=== PATIENT | female | born 1960 | race Caucasian/White ===

== ENCOUNTER → 2017-12-20 | Day surgery (SDC) | payer OTHER ==
[~2017-12-20] VITALS: Ht 157.5 cm; Wt 77.1 kg
[~2017-12-20] MED LIST: FLOMAX0.4 M1 PO; PERCOCET 5-3251 EACH PO; TRIAMTERENE-HC1 EAC1 PO; ZOFRAN4 M2 PO
--- NOTE | 2017-12-20 14:06 | ED GI/GU/ABDOMINAL COMPLAINT ---
History of Present Illness General Chief Complaint: Female Urogenital Problems Stated Complaint: KIDNEY STONE PAIN, SEEN HERE 12/19/17 Source: patient, family, old records Exam Limitations: no limitations Vital Signs & Intake/Output Vital Signs & Intake/Output Vital Signs Date Time Temp Pulse Resp B/P B/P Pulse O2 O2 Flow FiO2 Mean Ox Delivery Rate 12/20 1525 98.5 94 18 144/76 99 Room Air Room Air 12/20 1419 98.8 90 20 150/70 100 Room Air 12/20 1337 97.6 106 16 125/82 95 Room Air ED Intake and Output 12/21 0000 12/20 1200 Intake Total 0 Output Total Balance 0 Intake, Oral 0 Patient 170 lb Weight Weight Reported by Patient Measurement Method Allergies Coded Allergies: Penicillins (Mild, UNKNOWN 12/19/17) Sulfa (Sulfonamide Antibiotics) (Mild, HIVES 12/19/17) Uncoded Allergies: CODIENE (Mild, NAUSEA, VOMITING 12/19/17) Reconcile Medications Ondansetron HCl (Zofran) 4 MG TABLET 1 TAB PO Q6-8P PRN NAUSEA Oxycodone HCl/Acetaminophen (Percocet 5-325 MG Tablet) 5 MG-325 MG TABLET 1 TAB PO TID PRN PAIN Tamsulosin HCl (Flomax) 0.4 MG CAP.ER.24H 1 CAP PO DAILY KIDNEY STONE Triamterene/Hydrochlorothiazid (Triamterene-Hctz 37.5-25 MG Tb) 37.5 MG-25 MG TABLET 1 TAB PO DAILY HIGH BLOOD PRESSURE (Reported) Triage Note: 57 Y/O EVAL'D IN ED LAST EVENING AND DIAGNOSED WITH KIDNEY STONE. STATES SHE HAS NOT HAD PAIN SINCE ER VISIT LAST NIGHT HOWEVER PT C/O BEING UNABLE TO CONTROL NAUSEA. LAST ROUND PO MEDICATIONS 10AM. PT STATES THEY CALLED DR ARMAS AND WAS ADVISED TO COME TO ED FOR POSSIBLE STENT PLACEMENT AT 3PM. MIROSLAVA CHATA EVALUATING IN TRIAGE. Triage Nurses Notes Reviewed? yes LMP (ages 10-50): unknown ? N Is pt currently ? No Onset: Abrupt Duration: day(s): (2-3), constant, continues in ED Timing: single episode today Quality/Severity: vomiting Location: left flank, left lower quadrant, left upper quadrant Radiation: back Activities at Onset: none Prior Abdominal Problems: none Past Sexual History: Unobtainable at this time No Modifying Factors: none Modifying Factors: Worsens With: movement, palpation. Associated Symptoms: nausea/vomiting HPI: 57-year-old female history of hypertension presents for evaluation of nausea vomiting and abdominal pain. Patient was seen in the emergency department yesterday diagnosed a kidney stone. She was discharged home with Percocet and Flomax and Zofran and instructed to follow-up with urology today. Patient states that her pain is improved since her visit to the ER however the vomiting and nausea has gotten worse. She has not been able tolerate anything by mouth today due to multiple episodes of vomiting. She's been taking oral Zofran without much improvement. She reports that her pain is very mild in the left flank and left upper quadrant and left back. She called Dr. Armas's office who told to come in today to get a stent placed. Past History Travel History Traveled to [facility] past 21 day No Medical History Any Pertinent Medical History? see below for history Neurological: NONE EENT: NONE Cardiovascular: hypertension Respiratory: NONE Gastrointestinal: NONE Hepatic: NONE Renal: NONE Musculoskeletal: NONE Psychiatric: NONE Endocrine: NONE Blood Disorders: NONE Cancer(s): NONE Other Medical Hx: KIDNEY STONES Surgical History Surgical History: non-contributory Psychosocial History What is your primary language Wallisian Tobacco Use: Never used Family History Hx Contributory? No Review of Systems Review of Systems Constitutional: Reports: no symptoms. EENTM: Reports: no symptoms. Respiratory: Reports: no symptoms. Cardiovascular: Reports: no symptoms. GI: Reports: see HPI, abdominal pain, nausea, vomiting. Genitourinary: Reports: no symptoms. Musculoskeletal: Reports: see HPI, back pain, muscle pain. Skin: Reports: no symptoms. Neurological/Psychological: Reports: no symptoms. Hematologic/Endocrine: Reports: no symptoms. Immunologic/Allergic: Reports: no symptoms. All Other Systems: Reviewed and Negative Physical Exam Physical Exam General Appearance: well developed/nourished, no apparent distress, alert, awake Head: atraumatic, normal appearance Eyes: Bilateral: normal appearance, PERRL, EOMI. Ears, Nose, Throat, Mouth: hearing grossly normal, moist mucous membrane Neck: normal inspection, supple, full range of motion Respiratory: normal breath sounds, chest non-tender, no respiratory distress, lungs clear Cardiovascular: regular rate/rhythm, normal peripheral pulses Peripheral Pulses: 2+ radial (R), 2+ radial (L) Gastrointestinal: normal bowel sounds, soft, no organomegaly, tenderness (MILD LEFT FLANK, LLQ) Back: normal inspection, normal range of motion, no vertebral tenderness Extremities: normal range of motion Neurologic/Psych: no motor/sensory deficits, awake, alert, oriented x 3, normal gait Skin: intact, normal color, warm/dry Core Measures ACS in differential dx? No Sepsis Present: No Sepsis Focused Exam Completed? No Progress Differential Diagnosis: appendicitis, biliary colic, bowel obstruction, gastritis, kidney stone, pancreatitis, PID/cervicitis, peptic ulcer, PUD/GERD, UTI/pyelo Plan of Care: Orders Procedure Date/time Status TROPONIN LEVEL 12/20 134 Complete PARTIAL THROMBOPLASTIN TIME 12/20 134 Complete PROTHROMBIN TIME 12/20 134 Complete COMPREHENSIVE METABOLIC PANEL 12/20 134 Complete CBC WITHOUT DIFFERENTIAL 12/20 134 Complete EKG 12/20 134 Active Laboratory Tests 12/20/17 1408: Anion Gap 11, Estimated GFR > 60, BUN/Creatinine Ratio 30.0 H, Glucose 133 H, Calcium 9.9, Total Bilirubin 0.8, AST 39 H, ALT 89 H, Alkaline Phosphatase 103 , Troponin I < 0.01, Total Protein 6.9, Albumin 3.9, Globulin 3.0, Albumin/ Globulin Ratio 1.3, PT 11.6, INR 1.06, APTT 28, CBC w Diff NO MAN DIFF REQ, RBC 4.44, MCV 89.4, MCH 30.8, MCHC 34.5, RDW 12.3, MPV 8.5, Gran % 84.8 H, Lymphocytes % 11.5 L, Monocytes % 3.5, Eosinophils % 0.1, Basophils % 0.1, Absolute Granulocytes 10.7 H, Absolute Lymphocytes 1.5, Absolute Monocytes 0.4, Absolute Eosinophils 0, Absolute Basophils 0 12/20/17 1340: Urine Color Cancelled, Urine Clarity Cancelled, Urine pH Cancelled, Ur Specific [place] Cancelled, Urine Protein Cancelled, Urine Ketones Cancelled, Urine Nitrite Cancelled, Urine Bilirubin Cancelled, Urine Urobilinogen Cancelled, Ur Leukocyte Esterase Cancelled, Ur Microscopic Cancelled, Urine Hemoglobin Cancelled, Urine Glucose Cancelled Patient is here with nausea and vomiting associated with a kidney stone that was diagnosed yesterday. Her pain is improved after medications she took yesterday. She has not been able tolerate fluids. Labs EKG fluids and Zofran ordered. Case was discussed with Dr. Armas who will be taking the patient to our for stent placement. Patient is feeling better after Zofran is been no vomiting in the emergency department. Labs show an improvement in her white count. Patient was transferred to the OR for further evaluation with Dr. Armas. Initial ED EKG: normal sinus rhythm, LVH (BY VOLTAGE ) Departure Departure Disposition: STILL A PATIENT Condition: Stable Clinical Impression Primary Impression: Nephrolithiasis Referrals: Armida Iniguez MD (PCP/Family) Departure Forms: Customer Survey General Discharge Information OR/GI Note Spoke With: Ronny Armas MD Treatment Decision: SHILPI TELLEZ requires urgent operative management or an emergent procedure that cannot be performed in the Emergency Room setting. Ureteral stent
[2017-12-20 14:22] LABS: ABSOLUTE BASOPHIL COUNT 0 /CUMM (0.0-0.2); ABSOLUTE EOSINOPHIL COUNT 0 /CUMM (0.0-0.7); ABSOLUTE GRANULOCYTE CT 10.7 /CUMM (1.4-6.5); ABSOLUTE LYMPH COUNT 1.5 /CUMM (1.2-3.4); ABSOLUTE MONOCYTE COUNT 0.4 /CUMM (0.10-0.60); BASOPHIL % 0.1 % (0.0-2.0); EOSINOPHIL % 0.1 % (0-5); HEMATOCRIT 39.7 % (37-47); MEAN CORPUSCULAR HGB 30.8 PG (27.0-31.0); MEAN CORPUSCULAR HGB CONC 34.5 G/DL (33.0-37.0); MEAN CORPUSCULAR VOLUME 89.4 FL (81.0-99.0); MEAN PLATELET VOLUME 8.5 FL (7.4-10.4); PLATELET COUNT 224 /CUMM (130-400); RBC DISTRIBUTION WIDTH 12.3 % (11.5-14.5); RED BLOOD CELL CT 4.44 /CUMM (4.20-5.40); WHITE BLOOD CELL COUNT 12.6 /CUMM (4.8-10.8)
[2017-12-20 14:36] LABS: PT 11.6 SEC (9.4-12.5); PTT 28 SEC (25-37)
[2017-12-20 14:53] LABS: GRANULOCYTE % 84.8 % (42.2-75.2)
[2017-12-20 15:25] VITALS: BP 144/76
--- NOTE | 2017-12-20 15:41 | Cons- Urology ---
General Information and HPI Consulting Request Date of Consult: 12/20/17 Requested By: DO AMANDA GREGORY-CHRISTIE Reason for Consult: LEFT URETER STONE WITH OBSTRUCTION/HYDRO/N/V/ Source of Information: patient, family, old records Exam Limitations: no limitations History of Present Illness: 57 YR OLD WITH HX STONE, FIRST ONE 35 YRS AGO. SEEN IN ER 2WICE WITH RENAL COLIC: CT CONFIRMS LEFT URETER STONE WITH HYDRO AND ELEVATED WBC 12. DISCUSSED URETEROSCOPY/STENT WITH PT WITH R/B/A AND PT WISHES TO PROCEED. Allergies/Medications Allergies: Coded Allergies: Penicillins (Mild, UNKNOWN 12/19/17) Sulfa (Sulfonamide Antibiotics) (Mild, HIVES 12/19/17) Uncoded Allergies: CODIENE (Mild, NAUSEA, VOMITING 12/19/17) Home Med List: Ondansetron HCl (Zofran) 4 MG TABLET 1 TAB PO Q6-8P PRN NAUSEA Oxycodone HCl/Acetaminophen (Percocet 5-325 MG Tablet) 5 MG-325 MG TABLET 1 TAB PO TID PRN PAIN Tamsulosin HCl (Flomax) 0.4 MG CAP.ER.24H 1 CAP PO DAILY KIDNEY STONE Triamterene/Hydrochlorothiazid (Triamterene-Hctz 37.5-25 MG Tb) 37.5 MG-25 MG TABLET 1 TAB PO DAILY HIGH BLOOD PRESSURE (Reported) Current Medications: Current Medications Sig/Milagro Start time Last Medication Dose Route Stop Time Status Admin Ondansetron HCl 0 .STK-MED ONE 12/20 1419 DC .ROUTE Ondansetron HCl 4 MG ONCE ONE 12/20 1345 DC 12/20 IV 12/20 1346 1417 Sodium Chloride 1,000 ML BOLUS ONE 12/20 1345 DC 12/20 IV 12/20 1444 1417 Past History Medical History Neurological: NONE EENT: NONE Cardiovascular: hypertension Respiratory: NONE Gastrointestinal: NONE Hepatic: NONE Renal: NONE Musculoskeletal: NONE Psychiatric: NONE Endocrine: NONE Blood Disorders: NONE Cancer(s): NONE Other Medical Hx: KIDNEY STONES Surgical History Pertinent Surgical History: non-contributory Psychosocial History Where Do You Live? Home Who Do You Live With? spouse Services at Home: None Primary Language: Sami Smoking Status: Never Smoked ETOH Use: denies use Illicit Drug Use: denies illicit drug use Functional Ability ADLs Independent: dressing, eating, toileting, bathing. Ambulation: independent IADLs Independent: shopping, housework, finances, food prep, telephone, transportation , medication admin. Review of Systems Review of Systems Constitutional: Reports: chills. EENTM: Denies: no symptoms. Cardiovascular: Denies: no symptoms. Respiratory: Denies: no symptoms. GI: Reports: abdominal pain, bloating. Genitourinary: Reports: frequency. Musculoskeletal: Denies: no symptoms. Skin: Denies: no symptoms. Exam & Diagnostic Data Vital Signs and I&O Vital Signs Date Time Temp Pulse Resp B/P B/P Pulse O2 O2 Flow FiO2 Mean Ox Delivery Rate 12/20 1525 98.5 94 18 144/76 99 Room Air Room Air 12/20 1419 98.8 90 20 150/70 100 Room Air 12/20 1337 97.6 106 16 125/82 95 Room Air Intake & Output 12/20 1600 12/20 0800 12/20 0000 12/19 1600 12/19 0800 12/19 0000 Intake Total 0 Output Total Balance 0 Intake, Oral 0 Patient 170 lb Weight Weight Reported by Patient Measurement Method Physical Exam General Appearance: well developed/nourished, mild distress Head: atraumatic Eyes: Bilateral: normal appearance. Neck: normal inspection Respiratory: normal breath sounds Cardiovascular: regular rate/rhythm Gastrointestinal: normal bowel sounds, N/V Back: CVA tenderness (L) Extremities: normal inspection Skin: intact Reproductive: Normal female genitalia Last 24 Hours of Labs: Laboratory Tests 12/20 1408 Chemistry Sodium (137 - 145 mmol/L) 141 Potassium (3.5 - 5.1 mmol/L) 3.6 Chloride (98 - 107 mmol/L) 103 Carbon Dioxide (22 - 30 mmol/L) 27 Anion Gap (5 - 16) 11 BUN (7 - 17 mg/dL) 21 H Creatinine (0.5 - 1.0 mg/dL) 0.7 Estimated GFR (>60 ml/min) > 60 BUN/Creatinine Ratio (7 - 25 %) 30.0 H Glucose (65 - 99 mg/dL) 133 H Calcium (8.4 - 10.2 mg/dL) 9.9 Total Bilirubin (0.2 - 1.3 mg/dL) 0.8 AST (14 - 36 U/L) 39 H ALT (9 - 52 U/L) 89 H Alkaline Phosphatase (<127 U/L) 103 Troponin I (< 0.11 ng/ml) < 0.01 Total Protein (6.3 - 8.2 g/dL) 6.9 Albumin (3.5 - 5.0 g/dL) 3.9 Globulin (1.9 - 4.2 gm/dL) 3.0 Albumin/Globulin Ratio (1.1 - 2.2 %) 1.3 Coagulation PT (9.4 - 12.5 SEC) 11.6 INR (0.90 - 1.19) 1.06 APTT (25 - 37 SEC) 28 Hematology CBC w Diff NO MAN DIFF REQ WBC (4.8 - 10.8 /CUMM) 12.6 H RBC (4.20 - 5.40 /CUMM) 4.44 Hgb (12.0 - 16.0 G/DL) 13.7 Hct (37 - 47 %) 39.7 MCV (81.0 - 99.0 FL) 89.4 MCH (27.0 - 31.0 PG) 30.8 MCHC (33.0 - 37.0 G/DL) 34.5 RDW (11.5 - 14.5 %) 12.3 Plt Count (130 - 400 /CUMM) 224 MPV (7.4 - 10.4 FL) 8.5 Gran % (42.2 - 75.2 %) 84.8 H Lymphocytes % (20.5 - 51.1 %) 11.5 L Monocytes % (1.7 - 9.3 %) 3.5 Eosinophils % (0 - 5 %) 0.1 Basophils % (0.0 - 2.0 %) 0.1 Absolute Granulocytes (1.4 - 6.5 /CUMM) 10.7 H Absolute Lymphocytes (1.2 - 3.4 /CUMM) 1.5 Absolute Monocytes (0.10 - 0.60 /CUMM) 0.4 Absolute Eosinophils (0.0 - 0.7 /CUMM) 0 Absolute Basophils (0.0 - 0.2 /CUMM) 0 Imaging Results: PATIENT: SHILPI TELLEZ PRESENT AGE: 57 PATIENT ACCOUNT NO: [id number] : 62 LOCATION: [facility] ORDERING PHYSICIAN: Delbert COLORADO SERVICE DATE: 12/19/17 EXAM TYPE: CAT - CT ABD & PELVIS W IV CONTRAST EXAMINATION: CT ABDOMEN AND PELVIS WITH CONTRAST CLINICAL INFORMATION: Left-sided abdominal and flank pain. Vomiting. COMPARISON: 09/30/2010. TECHNIQUE: Multidetector volumetric imaging was performed of the abdomen and pelvis following IV administration of 95 mL of Optiray 320 intravenous contrast. Sagittal and coronal reformatted images were obtained on the technologist's workstation. DLP: 461 mGy-cm FINDINGS: LUNG BASES: The visualized lung bases are unremarkable. LIVER, GALLBLADDER, AND BILIARY TREE: On these portal venous phase images, the liver has attenuation approximately 20 Hounsfield units lower than the spleen; this suggests possibility of mild steatosis. No focal hepatic lesion. Gallbladder is physiologically distended and without calculi or wall edema. No intrahepatic or extrahepatic bile duct dilatation. PANCREAS: Unremarkable. SPLEEN: Unremarkable. ADRENAL GLANDS: Unremarkable. KIDNEYS AND URETERS: Kidneys are normal in size and enhance symmetrically. No evidence of renal mass, renal stone or perinephric edema. Mild left hydronephrosis is caused by a 0.3 cm calculus of the ureterovesical junction. BLADDER: No bladder calculi. GASTROINTESTINAL TRACT: Small sliding-type hiatal hernia. Loops of bowel are normal in caliber. No evidence of inflammation or obstruction along the gastrointestinal tract. No ascites or pneumoperitoneum. ABDOMINAL WALL: Unremarkable. LYMPH NODES: Normal. VASCULAR: Unremarkable. PELVIC VISCERA: Unremarkable. OSSEOUS STRUCTURES: Mild osteophyte formation at multiple levels of the thoracal lumbar spine. Small Schmorl's node of the superior endplate of L2. Mild facet arthropathy of L4-L5 and L5-S1. IMPRESSION: 1. Mild left hydronephrosis is caused by a 0.3 cm calculus of the ureterovesical junction. 2. Small sliding-type hiatal hernia. 3. Possible steatosis of the liver. DICTATED BY: Triston Chau MD DATE/TIME DICTATED:12/19/172240 VELVET WEAVER:JOHN DATE/TIME TRANSCRIBED:12/19/172240 CONFIDENTIAL, DO NOT COPY WITHOUT APPROPRIATE AUTHORIZATION. <Electronically signed in Other Vendor System> SIGNED BY: Triston Chau MD 12/19/17 2488 Assessment/Plan Assessment/Plan LEFT OBST. KIDNEY/NEEDS URETEROSCOPY-STENT TODAY Copies To: Ronny Armas MD Consult Acknowledgment - Thank you for your consult request. Attending MD Review Statement Attending Statement Attending MD Statement: examined this patient, discuss w/resident/PA/JUNIOR QA ANALYST Attending Assessment/Plan: LEFT URETER STONE/TO OR TODAY
--- NOTE | 2017-12-20 16:44 | Operative Report ---
Operative/Inv Procedure Report Surgery Date: 12/20/17 Name of Procedure: cystoscopy: left ureteroscopy, left stent insertion: fluoroscopy Pre-Operative Diagnosis: left renal colic with N/V: hydro due to obst. ureter stone Post-Operative Diagnosis: same Estimated Blood Loss: scant Surgeon/Manager Of Employee Relations: MD Pawel, [place] Anesthesia: general endotracheal tube Complications: none Condition: improved Operative/Procedure Note Note: The patient was taken to the operating room and placed on the OR table in supine position. With the patient awake, timeout was performed in order to confirm; correct patient, correct procedure, as well as correct laterality, and other pertinent dwayne-operative information. After adequate anesthesia and antibiotics , the patient was then placed lithotomy stirrups, draped and prepped in the usual surgical fashion. A 22 Barbadian cystoscope sheath with 30 angle lens was inserted into the bladder without difficulty. Upon entering the bladder, the bladder was noted to be free of tumor free of stone. Both orifices were in their orthotopic position. The left ureter orifice was intubated with an 8fr cone-tip catheter and a retrograde pyelogram with fluoroscopy was performed. A proximal ureter strictue, and a 4 mm left distal ureter filling defect (c/w stone), with proximal hydronephrosis, was visualized. The cone-tipped catheter was removed, followed by insertion of a 0.035 Glidewire, which was advanced into the left renal pelvis without difficulty, with correct placement confirmed on fluoroscopy. Leaving the Glidewire in place, an 8 Barbadian ureteral dilator was reloaded over the Glidewire. The dilator was advanced slowly, and easily, with fluoroscopic visualization, and advanced beyond the orifice and stone. The ureteral dilator was then removed, leaving the Glidewire in place. The flexible ureteroscope was rail roaded over the Glidewire, and was ealily advanced into the bladder, and into the left ureter under direct fluoroscopic visualization. With the ureteroscope in the left renal pelvis. At this point, pyeloscopy, and calyxoscopy was performed revealing no stones, nor any tumor. The Glidewire was then reinserted through the ureteroscope. Leaving the wire in place, the ureteroscope was slowly removed, and the entire length of the ureter was carefully visualized on the way out::no additional stone, or tumor was seen. The previously seen stone likley flushed out. The 22 Barbadian cystoscope sheath with a 30 angle lens was then reinserted into the bladder, with the Glidewire back loaded into the scope. A 6 x 22 Bard operatively ureteral stent was railroaded over the Glidewire. With the proximal coil advanced into the left renal pelvis, confirmed on fluoroscopy, and the distal coil seen in the bladder cystoscopically, the Glidewire was removed, and the stent remained in proper place. The bladder was then drained, and the cystoscope was removed. The patient tolerated the procedure well was then taken to the recovery room in satisfactory condition. The patient is to follow up in 1-2 weeks for stent removal. Discharge Disposition: PACU CC: Ronny Armas MD
--- NOTE | 2017-12-21 03:36 | RADIOLOGY REPORT ---
EXAMINATION: CR ABDOMEN/INTRAOPERATIVE FLUOROSCOPY CLINICAL INDICATION: Left ureteral stent placement. COMPARISON: CT scan of the abdomen and pelvis dated 12/19/2017. TECHNIQUE/FINDINGS: Fluoroscopic equipment was dedicated to the operating room for the performance of an intraoperative procedure. Single spot film was acquired and is archived in PACS. Please refer to operative notes for procedural detail. FLUOROSCOPY TIME: 9 seconds. IMPRESSION: Administrative dictation for intraoperative fluoroscopy and image archiving in PACS. Please refer to operative notes for details.
== END ==
LOC: ERH 13:32 → STS 15:29 → ERH 17:24
PROVIDERS: Physician Assistant Medical
DX: N13.2 Hydronephrosis with renal and ureteral calculous obstruction (principal); R11.2 Nausea with vomiting, unspecified
CPT/HCPCS: 74018; 93005; 93010; 96374; C2617; J1100; J1170; J2250; J2405; J3010; J3250